=== PATIENT | female | born 1965 | race Caucasian/White ===

== ENCOUNTER → 2018-08-02 | Emergency (ER) | payer OTHER ==
[2018-08-02 00:39] VITALS: BP 141/85; PULSE 86; TEMP 97.5; BMI 26.6
== END | disposition left against medical advice (07) ==
LOC: JER 00:35
DX: Z53.21 Procedure and treatment not carried out due to patient leaving prior to being seen by health care provider (principal)
CPT/HCPCS: 99281-25

== ENCOUNTER 2018-11-22 15:29 | Emergency (ER) | payer OTHER ==
[2018-11-22 15:38] VITALS: BP 144/88; PULSE 87; TEMP 98.3; BMI 28.3
--- NOTE | 2018-11-22 15:38 | PDOC ---
Rapid Medical Evaluation Chief Complaint: Head/Neck problem Medical Evaluation: Allergies Allergy/AdvReac Type Severity Reaction Status Date / Time No Known Allergies Allergy Verified 08/02/18 00:39 11/22/18 15:34 Pt presents for b/l hand numbness for 4 days. States the numbness moves up her arms. Denies recent URI, trauma Exam: NAD, full ROM of hands b/l Orders: Labs Pt to proceed to ED for further evaluation Discharge Disposition - Diagnosis Bilateral hand numbness - Referrals - Patient Instructions - Post Discharge Activity
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
[2018-11-22] MEDS ORDERED: KETOROLAC TROMETHAMINE 15 MG/ML VIAL IVPUSH ONE (16:29)
[2018-11-22 16:34] LABS: BASO % 1.1 % (0-2.0); EOS % 2.9 % (0-4.5); HEMATOCRIT 39.8 % (32.4-45.2); HEMOGLOBIN 13.5 GM/dL (10.7-15.3); LYMPH % 34.6 % (8-40); MCH 27.7 pg (25.7-33.7); MCHC 33.8 g/dl (32.0-36.0); MEAN CELL VOLUME 81.7 fl (80-96); MEAN PLT VOLUME 9.7 fl (7.5-11.1); MONO % 8.6 % (3.8-10.2); NEUT % 52.8 % (42.8-82.8); PLATELET COUNT 234 K/MM3 (134-434); RBC 4.87 M/mm3 (3.60-5.2); WHITE BLOOD COUNT 6.6 K/mm3 (4.0-10.0)
[2018-11-22] MEDS ORDERED: KETOROLAC TROMETHAMINE 15 MG/ML VIAL ONE (16:40)
[2018-11-22 17:00] LABS: INR 0.98 (0.83-1.09); PROTHROMBIN TIME (PATIENT) 11.6 SEC (9.7-13.0)
[2018-11-22 17:12] LABS: ALBUMIN 3.8 g/dl (3.4-5.0); ALK PHOS 82 U/L (45-117); ANION GAP 9 MMOL/L (8-16); BILIRUBIN,TOTAL 0.3 mg/dL (0.2-1); BLOOD UREA NITROGEN 15 mg/dL (7-18); CALCIUM 9.2 mg/dL (8.5-10.1); CHLORIDE 106 mmol/L (98-107); CO2 26 mmol/L (21-32); CREATININE 0.7 mg/dL (0.55-1.3); GLUCOSE,RANDOM 91 mg/dL (74-106); POTASSIUM 4.1 mmol/L (3.5-5.1); SGOT/AST 26 U/L (15-37); SGPT/ALT 30 U/L (13-61); SODIUM 141 mmol/L (136-145); TOT PROT 7.2 g/dl (6.4-8.2)
[2018-11-22 17:17] LABS: URINE APPEARANCE SLCLOUDY; URINE BILIRUBIN NEGATIVE (<2.0 mg/dL); URINE COLOR YELLOW; URINE GLUCOSE (UA) NEGATIVE (NEGATIVE); URINE KETONE TRACE (NEGATIVE); URINE LEUK ESTERASE NEGATIVE (NEGATIVE); URINE NITRITE NEGATIVE (NEGATIVE); URINE PROTEIN NEGATIVE (NEGATIVE)
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
== END 2018-11-22 18:59 | disposition home or self-care (01) ==
LOC: JER 15:29
PROC: 3E0333Z Introduction of Anti-inflammatory into Peripheral Vein, Percutaneous Approach (ICD-10-PCS; principal; 2018-11-22)
DX: M79.642 Pain in left hand (principal); M79.641 Pain in right hand; M54.2 Cervicalgia; M25.512 Pain in left shoulder; G89.29 Other chronic pain
CPT/HCPCS: 36415; 80053; 81003; 85025; 85610; 96374; 99282-25

== ENCOUNTER 2019-04-10 15:19 | Emergency (ER) | payer OTHER ==
--- NOTE | 2019-04-10 15:36 | PDOC ---
Rapid Medical Evaluation Time Seen by Provider: 04/10/19 15:34 Medical Evaluation: Allergies Allergy/AdvReac Type Severity Reaction Status Date / Time No Known Allergies Allergy Verified 04/10/19 15:34 04/10/19 15:34 I have performed a brief in-person evaluation of this patient. The patient presents with a chief complaint of: atraumatic left knee pain x4 days Pertinent physical exam findings: Flexion >90 degrees. Left infrapatellar swelling I have ordered the following: xrays, ice The patient will proceed to the ED for further evaluation. Discharge Disposition - Diagnosis Left knee pain - Referrals - Patient Instructions - Post Discharge Activity
[2019-04-10 15:37] VITALS: BP 112/89; PULSE 74; TEMP 98.5; BMI 30.2
--- NOTE | 2019-04-10 16:29 | PDOC ---
History of Present Illness - General Chief Complaint: Pain Stated Complaint: LT LEG SWOLLEN/PAIN Time Seen by Provider: 04/10/19 15:34 History Source: Patient Exam Limitations: No Limitations - History of Present Illness Initial Comments: 04/10/19 17:27 onset of ankle pain 4 days agoand uncertain as to the mechanism of injury. States has recent move where was doing excessive lifting andwalking but does not remember any specific incident that caused himinjury to her right ankle Occurred: reports: just prior to arrival Severity: reports: mild, moderate Pain Location: reports: lower extremity (right ankle) Modifying Factors: improves with: cold therapy Associated Symptoms (Fall): denies symptoms Past History - Travel Traveled outside of the country in the last 30 days: No Close contact w/someone who was outside of country & ill: No - Past Medical History Allergies/Adverse Reactions: Allergies Allergy/AdvReac Type Severity Reaction Status Date / Time No Known Allergies Allergy Verified 04/10/19 15:34 Home Medications: Ambulatory Orders Naproxen [Naprosyn -] 500 mg PO BID #30 tablet 04/10/19 COPD: No CHF: No - Suicide/Smoking/Psychosocial Hx Smoking History: Never smoked Have you smoked in the past 12 months: No Hx Alcohol Use: No Drug/Substance Use Hx: No Review of Systems - Review of Systems Able to Perform ROS?: Yes Is the patient limited Mexican proficient: Yes Constitutional: Yes: See HPI. No: Symptoms Reported, Fever, Malaise HEENTM: No: Symptoms Reported Musculoskeletal: Yes: Symptoms Reported, See HPI, Joint Pain, Joint Swelling, Muscle Pain Integumentary: Yes: Symptoms Reported, See HPI Neurological: No: Symptoms reported All Other Systems: Reviewed and Negative *Physical Exam - Vital Signs Last Vital Signs Temp Pulse Resp BP Pulse Ox 98.5 F 74 18 112/89 100 04/10/19 15:34 04/10/19 15:34 04/10/19 15:34 04/10/19 15:34 04/10/19 15:34 - Physical Exam General Appearance: Yes: Nourished, Appropriately Dressed, Apparent Distress, Mild Distress HEENT: positive: RONALD, Normal ENT Inspection, TMs Normal, Pharynx Normal Neck: positive: Supple. negative: Tender Respiratory/Chest: positive: Lungs Clear Musculoskeletal: negative: Normal Inspection Extremity: positive: Normal Capillary Refill, Swelling, Other (patella is mobile but is tender with movement. No crepitus or step-offs. Has positive ballottement to the superior lateral aspect of knee capsule. Range of motion is approximately 50% secondary to pain and swelling. Has worse pain on the lateral aspect worse at the superior insertion of the LCL. Has some mild tenderness in posterior fossa. Neurovascular intact distal to knee). negative: Normal Range of Motion (limited due to pain and swelling) Integumentary: positive: Normal Color, Dry, Warm Neurologic: positive: sign painter II-XII NML intact, Fully Oriented, Alert, Normal Mood/ Affect, Normal Response, Motor Strength 5/5 Progress Note - Progress Note Progress Note: nee sprain,x-ray negative for fractures or dislocations, Donn wrap applied, will treat with RICE, NSAIDS- F/U with ORTHO *DC/Admit/Observation/Transfer Diagnosis at time of Disposition: Sprain of left knee Qualifiers: Encounter type: initial encounter Involved ligament of knee: unspecified ligament Qualified Code(s): S83.92XA - Sprain of unspecified site of left knee, initial encounter - Discharge Dispostion Disposition: HOME Condition at time of disposition: Stable Decision to Admit order: No - Prescriptions Prescriptions: Naproxen [Naprosyn -] 500 mg PO BID #30 tablet - Referrals Referrals: Waletr Coy MD [Staff Physician] - - Patient Instructions Printed Discharge Instructions: DI for Knee Sprain Additional Instructions: Rest, ice to area on and off for 15 minutes 4-6 times a day Avoid heavy lifting or exercise until pain and swelling is resolved or until further directed Keep area highly elevated to reduce swelling Use splints/Donn wrap as directed Followup with orthopedist in one to 2 days if not improving, if significantly improved may wait one week for followup with orthopedist May use ibuprofen every 6 hours as needed for pain - Post Discharge Activity Forms/Work/School Notes: Back to Work
== END 2019-04-10 16:41 | disposition home or self-care (01) ==
LOC: JERFT 15:19
DX: S83.8X2A Sprain of other specified parts of left knee, initial encounter (principal); X50.9XXA Other and unspecified overexertion or strenuous movements or postures, initial encounter; Y93.89 Activity, other specified; Y92.89 Other specified places as the place of occurrence of the external cause; Y99.8 Other external cause status
CPT/HCPCS: 73560-TC-LT-FY; 99282-25

== ENCOUNTER 2021-05-15 09:57 | Emergency (ER) | payer OTHER ==
[2021-05-15 10:03] VITALS: TEMP 97.8; BMI 28.5
[2021-05-15] MEDS ORDERED: METOCLOPRAMIDE HCL INJECTION 10 MG/2 ML VIAL IVPB ONE (10:24)
[2021-05-15] MEDS ORDERED: ACETAMINOPHEN 1000 MG/100 ML VIAL IVPB ONE (10:24)
[2021-05-15] MEDS ORDERED: SODIUM CHLORIDE 0.9% 500 ML INFUS.BAG IV ONE (10:25)
[2021-05-15] MEDS ORDERED: ACETAMINOPHEN INJECTION 100 ML IVPB ONE (10:26)
[2021-05-15] MEDS ORDERED: METOCLOPRAMIDE HCL INJECTION 10 MG/2 ML VIAL ONE (10:49)
[2021-05-15 13:32] VITALS: BP 176/98; PULSE 67
[2021-05-16 13:10] LABS: SARS-CoV-2 NAA Not Detected (Not Detected)
== END 2021-05-15 13:26 | disposition home or self-care (01) ==
LOC: JER 09:57
PROC: 3E033NZ Introduction of Analgesics, Hypnotics, Sedatives into Peripheral Vein, Percutaneous Approach (ICD-10-PCS; principal; 2021-05-15)
PROC: 3E033GC Introduction of Other Therapeutic Substance into Peripheral Vein, Percutaneous Approach (ICD-10-PCS; 2021-05-15)
PROC: 3E033GC Introduction of Other Therapeutic Substance into Peripheral Vein, Percutaneous Approach (ICD-10-PCS; 2021-05-15)
DX: R51.9 Headache, unspecified (principal); R53.1 Weakness
CPT/HCPCS: 87804; 96374; 96375; 99285-25; C9803; J0131; U0003; U0005

== ENCOUNTER 2021-06-26 02:09 | Emergency (ER) | payer OTHER ==
[2021-06-26] MEDS ORDERED: diphenhydrAMINE HCL 25 MG CAPSULE (FP) PO ONE (02:39)
[2021-06-26] MEDS ORDERED: ACETAMINOPHEN 325 MG TABLET (FP) ONE (02:39)
[2021-06-26 02:40] VITALS: BP 142/85; PULSE 66; TEMP 98.2; BMI 26.6
[2021-06-26] MEDS ORDERED: METOCLOPRAMIDE HCL 10 MG TABLET (FP) PO ONE (02:40)
[2021-06-26] MEDS: METOCLOPRAMIDE HCL 10 MG TABLET (FP) PO ONE ×2 (02:43→03:03)
[2021-06-26] MEDS: diphenhydrAMINE HCL 25 MG CAPSULE (FP) PO ONE ×2 (02:43→03:03)
[2021-06-26] MEDS: ACETAMINOPHEN 325 MG TABLET (FP) PO ONE ×2 (02:43→03:02)
[2021-06-26] MEDS ORDERED: METOCLOPRAMIDE HCL INJECTION 10 MG/2 ML VIAL IVPUSH ONE (03:01)
[2021-06-26] MEDS ORDERED: DEXAMETHASONE SOD PHOSPHATE 10 MG/1 ML VIAL IVPUSH ONE (03:01)
[2021-06-26] MEDS ORDERED: ACETAMINOPHEN 1000 MG/100 ML VIAL (NON FORMULARY) IVPB ONE (03:01)
[2021-06-26] MEDS ORDERED: METOCLOPRAMIDE HCL INJECTION 10 MG/2 ML VIAL ONE (03:05)
[2021-06-26] MEDS ORDERED: ACETAMINOPHEN INJECTION 100 ML IVPB ONE (03:05)
[2021-06-26] MEDS ORDERED: DEXAMETHASONE SOD PHOSPHATE 10 MG/1 ML VIAL ONE (03:05)
== END 2021-06-26 05:49 | disposition home or self-care (01) ==
LOC: JER 02:09
PROC: 3E033GC Introduction of Other Therapeutic Substance into Peripheral Vein, Percutaneous Approach (ICD-10-PCS; principal; 2021-06-26)
DX: R51.9 Headache, unspecified (principal)
CPT/HCPCS: 70450-TC; 70486-TC; 99284-25; J0131; J1100

== ENCOUNTER 2022-03-20 06:38 | Emergency (ER) | payer OTHER ==
[2022-03-20 06:53] VITALS: TEMP 98; BMI 29.6
[2022-03-20] MEDS ORDERED: METOCLOPRAMIDE HCL INJECTION 10 MG/2 ML VIAL IVPB ONE (07:36)
[2022-03-20] MEDS ORDERED: diazePAM 2 MG TABLET PO ONE (07:36)
[2022-03-20] MEDS ORDERED: ONDANSETRON 4 MG/2 ML VIAL IVPB PRN (07:36)
[2022-03-20] MEDS ORDERED: METOCLOPRAMIDE HCL INJECTION 10 MG/2 ML VIAL ONE (07:41)
[2022-03-20 08:23] LABS: BASO % 0.4 % (0-2.0); EOS % 1.8 % (0-4.5); HEMATOCRIT 40.4 % (32.4-45.2); HEMOGLOBIN 13.5 GM/dL (10.7-15.3); LYMPH % 20.2 % (8-40); MCH 27.3 pg (25.7-33.7); MCHC 33.5 g/dl (32.0-36.0); MEAN CELL VOLUME 81.5 fl (80-96); MEAN PLT VOLUME 9.2 fl (7.5-11.1); MONO % 6.5 % (3.8-10.2); NEUT % 71.1 % (42.8-82.8); PLATELET COUNT 201 10^3/uL (134-434); RBC 4.96 M/mm3 (3.60-5.2); WHITE BLOOD COUNT 7.5 K/mm3 (4.0-10.0)
[2022-03-20] MEDS ORDERED: diazePAM 2 MG TABLET ONE (08:27)
[2022-03-20] MEDS ORDERED: HYDROCHLOROTHIAZIDE 12.5 MG CAPSULE (FP) PO ONE (08:55)
[2022-03-20 09:15] LABS: BILIRUBIN,TOTAL 0.5 mg/dL (0.2-1); BLOOD UREA NITROGEN 20.6 mg/dL (7-18); CALCIUM 9.1 mg/dL (8.5-10.1); CREATININE 0.9 mg/dL (0.55-1.3); MAGNESIUM 2.3 mg/dL (1.8-2.4); TOT PROT 7.2 g/dl (6.4-8.2)
[2022-03-20] MEDS ORDERED: HYDROCHLOROTHIAZIDE 25 MG TABLET (FP) ONE (09:19)
[2022-03-20 10:22] VITALS: BP 157/85; PULSE 63
== END 2022-03-20 10:24 | disposition home or self-care (01) ==
LOC: JER 06:38
PROC: 3E033GC Introduction of Other Therapeutic Substance into Peripheral Vein, Percutaneous Approach (ICD-10-PCS; principal; 2022-03-20)
DX: R42 Dizziness and giddiness (principal); I10 Essential (primary) hypertension
CPT/HCPCS: 36415; 80053; 83735; 84703; 85025; 93005; 93010; 99284-25

== ENCOUNTER 2022-08-15 07:19 | Emergency (ER) | payer OTHER ==
[2022-08-15 08:06] VITALS: BP 166/89; PULSE 72; RESP 18; TEMP 98.2; BMI 27.8
[2022-08-15] MEDS ORDERED: ONDANSETRON *ODT* 4 MG TABLET SL ONE (08:20)
[2022-08-15] MEDS ORDERED: KETOROLAC TROMETHAMINE 30 MG/1 ML VIAL IM ONE (08:20)
[2022-08-15] MEDS ORDERED: KETOROLAC TROMETHAMINE 30 MG/1 ML VIAL ONE (09:18)
[2022-08-15] MEDS ORDERED: ONDANSETRON *ODT* 4 MG TABLET ONE (09:18)
== END 2022-08-15 10:42 | disposition home or self-care (01) ==
LOC: JER 07:19
PROC: 3E0233Z Introduction of Anti-inflammatory into Muscle, Percutaneous Approach (ICD-10-PCS; principal; 2022-08-15)
DX: R05.1 Acute cough (principal); M79.10 Myalgia, unspecified site; R51.9 Headache, unspecified; R11.0 Nausea; R53.83 Other fatigue
CPT/HCPCS: 0241U-QW; 71046-TC-FY; 96372; 99284-25; Q0162

== ENCOUNTER 2022-09-19 07:14 | Emergency (ER) | payer OTHER ==
[2022-09-19 07:29] VITALS: RESP 18; BMI 25.9
[2022-09-19] MEDS ORDERED: SODIUM CHLORIDE 0.9% 500 ML INFUS.BAG IV ONE (08:20)
[2022-09-19] MEDS ORDERED: MAG HYDROX/AL HYDROX/SIMETH 30 ML UNIT-DOSE CUP PO ONE (08:20)
[2022-09-19] MEDS ORDERED: ACETAMINOPHEN 1000 MG/100 ML BAG IVPB ONE (08:20)
[2022-09-19] MEDS ORDERED: FAMOTIDINE 20 MG/50 ML IVPB 20 MG/50 ML MG IVPB ONE (08:20)
[2022-09-19] MEDS ORDERED: ACETAMINOPHEN INJECTION 100 ML IVPB ONE (08:40)
[2022-09-19] MEDS ORDERED: MAG HYDROX/AL HYDROX/SIMETH 30 ML UNIT-DOSE CUP ONE (08:40)
[2022-09-19] MEDS ORDERED: FAMOTIDINE 10 MG/ML VIAL IVPB ONE (08:40)
[2022-09-19 09:03] LABS: EPI CELLS 9 /uL (0-25.1); HYALINE CASTS 2 /uL (0-3.1); PH,URINE 6.5 (5.0-8.0); URINE APPEARANCE CLEAR; URINE BACTERIA 57 /uL (0-1359); URINE BILIRUBIN NEGATIVE (NEGATIVE); URINE COLOR YELLOW; URINE GLUCOSE (UA) NEGATIVE (NEGATIVE); URINE KETONE TRACE (NEGATIVE); URINE LEUK ESTERASE NEGATIVE (NEGATIVE); URINE NITRITE NEGATIVE (NEGATIVE); URINE PROTEIN TRACE (NEGATIVE); URINE RBC 270 /uL (0-23.9); URINE WBC 10 /uL (0-25.8)
[2022-09-19 09:12] LABS: BASO % 4.1 % (0-2.0); EOS % 1.6 % (0-4.5); HEMATOCRIT 33.4 % (32.4-45.2); HEMOGLOBIN 10.6 GM/dL (10.7-15.3); LYMPH % 15.2 % (8-40); MCH 23.6 pg (25.7-33.7); MCHC 31.8 g/dl (32.0-36.0); MEAN CELL VOLUME 74.3 fl (80-96); MEAN PLT VOLUME 8.5 fl (7.5-11.1); MONO % 8.7 % (3.8-10.2); NEUT % 70.4 % (42.8-82.8); PLATELET COUNT 381 10^3/uL (134-434); RDW 14.3 % (11.6-15.6); WHITE BLOOD COUNT 8.6 K/mm3 (4.0-10.0)
[2022-09-19 09:29] LABS: CHLORIDE 103 mmol/L (98-107); SODIUM 140 mmol/L (136-145)
[2022-09-19 09:31] LABS: ANION GAP 9 MMOL/L (8-16); BLOOD UREA NITROGEN 12.5 mg/dL (7-18); CALCIUM 10.1 mg/dL (8.5-10.1); CO2 27 mmol/L (21-32); GLUCOSE,RANDOM 104 mg/dL (74-106); LIPASE 217 U/L (73-393); MAGNESIUM 2.4 mg/dL (1.8-2.4)
[2022-09-19 09:34] LABS: CREATININE 0.8 mg/dL (0.55-1.3); SGOT/AST 29 U/L (15-37); SGPT/ALT 33 U/L (13-61)
[2022-09-19 09:36] LABS: BILIRUBIN,TOTAL 0.4 mg/dL (0.2-1); TOT PROT 7.8 g/dl (6.4-8.2)
[2022-09-19 09:37] LABS: ALK PHOS 80 U/L (45-117)
[2022-09-19 13:20] VITALS: BP 100/68; PULSE 73; TEMP 98.5
== END 2022-09-19 13:44 | disposition home or self-care (01) ==
LOC: JER 07:14
PROC: 3E033GC Introduction of Other Therapeutic Substance into Peripheral Vein, Percutaneous Approach (ICD-10-PCS; principal; 2022-09-19)
DX: K80.20 Calculus of gallbladder without cholecystitis without obstruction (principal)
CPT/HCPCS: 0241U-QW; 36415; 74177-TC; 76705-TC; 80053; 81003; 82272; 83690; 83735; 84702; 85025; 93005; 93010; 99285-25; Q9967

== ENCOUNTER 2022-09-23 15:01 | Day surgery (SDC) | payer OTHER ==
[2022-09-23 15:33] VITALS: BMI 25.7
[2022-09-23 18:31] LABS: BASO % 0.3 % (0-2.0); EOS % 0.9 % (0-4.5); HEMOGLOBIN 10.1 GM/dL (10.7-15.3); LYMPH % 17.8 % (8-40); MCH 23.5 pg (25.7-33.7); MCHC 31.5 g/dl (32.0-36.0); MEAN CELL VOLUME 74.4 fl (80-96); MEAN PLT VOLUME 8.3 fl (7.5-11.1); MONO % 8.6 % (3.8-10.2); NEUT % 72.4 % (42.8-82.8); PLATELET COUNT 341 10^3/uL (134-434); RBC 4.31 M/mm3 (3.60-5.2); RDW 14.4 % (11.6-15.6); WHITE BLOOD COUNT 7.2 K/mm3 (4.0-10.0)
[2022-09-23 18:38] LABS: INR 1.23 (0.83-1.09); PROTHROMBIN TIME (PATIENT) 14.2 SEC (9.7-13.0)
[2022-09-23 18:41] LABS: ACTIVATED PTT 29.4 SECONDS (25.2-36.5)
[2022-09-23 18:52] LABS: ALBUMIN 3.2 g/dl (3.4-5.0); BLOOD UREA NITROGEN 17.2 mg/dL (7-18); CALCIUM 9.7 mg/dL (8.5-10.1)
[2022-09-23 18:55] LABS: CREATININE 1.1 mg/dL (0.55-1.3)
[2022-09-23 18:57] LABS: BILIRUBIN,TOTAL 0.3 mg/dL (0.2-1); TOT PROT 7.5 g/dl (6.4-8.2)
[2022-09-24] MEDS ORDERED: ONDANSETRON 4 MG/2 ML VIAL IVPUSH PRN ×2 (08:54→12:54)
[2022-09-24] MEDS ORDERED: LACTATED RINGERS SOLUTION 1,000 ML IV SCH (09:00)
[2022-09-24] MEDS ORDERED: ROCURONIUM BROMIDE 50 MG/5 ML SYRINGE ONE (09:06)
[2022-09-24] MEDS ORDERED: DEXAMETHASONE SOD PHOSPHATE 4 MG/1 ML VIAL ONE (09:06)
[2022-09-24] MEDS ORDERED: PROPOFOL 20 ML ONE (09:06)
[2022-09-24] MEDS ORDERED: MIDAZOLAM HCL 2 MG/2 ML SINGLE DOSE VIAL ONE (09:06)
[2022-09-24] MEDS ORDERED: LIDOCAINE HCL/PF 2% SDV 5ML VIAL ONE (09:06)
[2022-09-24] MEDS ORDERED: FENTANYL CITRATE/PF 50 MCG/ML VIAL ONE ×5 (09:06→11:47)
[2022-09-24] MEDS ORDERED: ONDANSETRON 4 MG/2 ML VIAL ONE (09:06)
[2022-09-24 09:51] LABS: BASO % 0.5 % (0-2.0); EOS % 1.5 % (0-4.5); HEMATOCRIT 32.6 % (32.4-45.2); HEMOGLOBIN 10.5 GM/dL (10.7-15.3); LYMPH % 24.9 % (8-40); MCH 23.9 pg (25.7-33.7); MCHC 32.3 g/dl (32.0-36.0); MEAN PLT VOLUME 8.5 fl (7.5-11.1); MONO % 8.6 % (3.8-10.2); NEUT % 64.5 % (42.8-82.8); PLATELET COUNT 348 10^3/uL (134-434); RDW 14.7 % (11.6-15.6)
[2022-09-24 09:58] LABS: INR 1.26 (0.83-1.09); PROTHROMBIN TIME (PATIENT) 14.5 SEC (9.7-13.0)
[2022-09-24 10:00] LABS: ACTIVATED PTT 30.8 SECONDS (25.2-36.5)
[2022-09-24] MEDS ORDERED: ceFAZolin SODIUM 1 GM VIAL ONE (10:00)
[2022-09-24] MEDS ORDERED: ceFAZolin SODIUM 1 GM VIAL IVPB ONE (10:01)
[2022-09-24] MEDS ORDERED: KETOROLAC TROMETHAMINE 30 MG/1 ML VIAL ONE (10:58)
[2022-09-24] MEDS ORDERED: GLYCOPYRROLATE 0.2 MG/1 ML VIAL ONE (10:58)
[2022-09-24] MEDS ORDERED: NEOSTIGMINE METHYLSULFATE 0.5 MG/ML - 10 ML MDV ONE (10:58)
[2022-09-24] MEDS ORDERED: BUPIVACAINE HCL/PF 0.5% (5MG/ML) 10 ML VIAL IJ ONE (11:05)
[2022-09-24 11:07] LABS: CALCIUM 10.1 mg/dL (8.5-10.1)
[2022-09-24 11:08] LABS: ALBUMIN 3.2 g/dl (3.4-5.0); MAGNESIUM 2.7 mg/dL (1.8-2.4)
[2022-09-24 11:10] LABS: CREATININE 1.1 mg/dL (0.55-1.3); PHOSPHOROUS 3.3 mg/dL (2.5-4.9)
[2022-09-24 11:11] LABS: BILIRUBIN,TOTAL 0.4 mg/dL (0.2-1); TOT PROT 7.5 g/dl (6.4-8.2)
[2022-09-24] MEDS ORDERED: HYDROmorphone HCl 2 MG/ML VIAL ONE (11:52)
[2022-09-24] MEDS ORDERED: HYDROmorphone HCL CARPU-JECT 2 MG/1 ML DISP.SYRIN IVPUSH ONE ×2 (11:55→12:17)
[2022-09-24] MEDS ORDERED: HYDROmorphone HCl 2 MG/ML VIAL IVPUSH PRN (12:05)
[2022-09-24] MEDS ORDERED: ACETAMINOPHEN 1000 MG/100 ML BAG IVPB ONE ×2 (12:06→12:08)
[2022-09-24] MEDS ORDERED: oxyCODONE HCL 5 MG TABLET PO PRN (12:54)
[2022-09-24] MEDS: LACTATED RINGERS SOLUTION 1,000 ML IV SCH ×2 (15:04→22:05)
[2022-09-24] MEDS ORDERED: ACETAMINOPHEN 1000 MG/100 ML BAG IVPB PRN (17:00)
[2022-09-24 18:38] VITALS: RESP 18
[2022-09-24] MEDS: KETOROLAC TROMETHAMINE 15 MG/ML VIAL IVPUSH PRN (20:37)
[2022-09-24] MEDS: DOCUSATE SODIUM 100 MG CAPSULE (FP) PO SCH (21:59)
[2022-09-24] MEDS ORDERED: ATORVASTATIN CA 10 MG TABLET (FP) PO SCH (22:00)
[2022-09-25 08:23] LABS: BASO % 0.6 % (0-2.0); EOS % 0.2 % (0-4.5); HEMATOCRIT 27.3 % (32.4-45.2); HEMOGLOBIN 8.9 GM/dL (10.7-15.3); LYMPH % 12.7 % (8-40); MCH 23.6 pg (25.7-33.7); MCHC 32.5 g/dl (32.0-36.0); MEAN CELL VOLUME 72.7 fl (80-96); MEAN PLT VOLUME 8.6 fl (7.5-11.1); MONO % 6.3 % (3.8-10.2); NEUT % 80.2 % (42.8-82.8); PLATELET COUNT 292 10^3/uL (134-434); RBC 3.75 M/mm3 (3.60-5.2); RDW 14.2 % (11.6-15.6); WHITE BLOOD COUNT 10.1 K/mm3 (4.0-10.0)
[2022-09-25 08:53] LABS: ALBUMIN 2.6 g/dl (3.4-5.0); BLOOD UREA NITROGEN 15.2 mg/dL (7-18); CALCIUM 9.3 mg/dL (8.5-10.1)
[2022-09-25 08:57] LABS: BILIRUBIN,TOTAL 0.8 mg/dL (0.2-1); CREATININE 0.9 mg/dL (0.55-1.3); TOT PROT 6.5 g/dl (6.4-8.2)
[2022-09-25] MEDS ORDERED: ENOXAPARIN NA (PORCINE) 40 MG/0.4 ML DISP.SYRIN SQ SCH (10:00)
[2022-09-25] MEDS ORDERED: HYDROCHLOROTHIAZIDE 12.5 MG CAPSULE (FP) PO SCH (10:00)
[2022-09-25] MEDS ORDERED: MECLIZINE HCL 25 MG TABLET (FP) PO SCH (10:00)
[2022-09-25] MEDS ORDERED: MECLIZINE HCL 25 MG TABLET (FP) PO PRN (10:00)
[2022-09-25] MEDS: DOCUSATE SODIUM 100 MG CAPSULE (FP) PO SCH (10:09)
[2022-09-25] MEDS: KETOROLAC TROMETHAMINE 15 MG/ML VIAL IVPUSH PRN (13:35)
[2022-09-25 14:47] VITALS: BP 139/77; PULSE 71; TEMP 98.4
== END 2022-09-25 16:55 | disposition home or self-care (01) ==
LOC: JOR 15:01 → UNDOADMOB 17:24 → JERBED 17:24 → J4W 21:40 → JASUSAT 23:46 → SUATTDRO 23:46 → J7W 23:46 → JASUSAT 09-24 13:55 → J7W 09-24 13:57 → JASUSAT 09-24 13:57
PROVIDERS: ATTEND Internal Medicine
PROC: 0FT44ZZ Resection of Gallbladder, Percutaneous Endoscopic Approach (ICD-10-PCS; principal; 2022-09-23)
DX: K80.10 Calculus of gallbladder with chronic cholecystitis without obstruction (principal)
CPT/HCPCS: 36415; 80053; 83735; 84100; 85025; 85610; 85730; 86850; 86900; 86901; 88304-TC; 93005; 93010; 94010; 94760; 99285-25; C9803-CS; U0003; U0005

== ENCOUNTER 2023-01-04 13:25 | Emergency (ER) | payer OTHER ==
[2023-01-04 13:39] VITALS: BMI 26.3
[2023-01-04 16:11] LABS: BASO % 0.6 % (0-2.0); EOS % 1.5 % (0-4.5); HEMATOCRIT 32.7 % (32.4-45.2); HEMOGLOBIN 10.5 GM/dL (10.7-15.3); LYMPH % 16.1 % (8-40); MCH 22.7 pg (25.7-33.7); MCHC 32.1 g/dl (32.0-36.0); MEAN CELL VOLUME 70.9 fl (80-96); MONO % 5.3 % (3.8-10.2); NEUT % 76.5 % (42.8-82.8); PLATELET COUNT 419 10^3/uL (134-434); RBC 4.61 M/mm3 (3.60-5.2); RDW 15.9 % (11.6-15.6); WHITE BLOOD COUNT 9.9 K/mm3 (4.0-10.0)
[2023-01-04 16:17] LABS: INR 1.26 (0.83-1.09); PROTHROMBIN TIME (PATIENT) 14.6 SEC (9.7-13.0)
[2023-01-04 16:29] LABS: ALBUMIN 3.2 g/dl (3.4-5.0); CALCIUM 10.3 mg/dL (8.5-10.1)
[2023-01-04 16:30] LABS: BLOOD UREA NITROGEN 14.1 mg/dL (7-18)
[2023-01-04 16:32] LABS: CREATININE 0.8 mg/dL (0.55-1.3)
[2023-01-04 16:34] LABS: BILIRUBIN,TOTAL 0.2 mg/dL (0.2-1); TOT PROT 8.3 g/dl (6.4-8.2)
[2023-01-04] MEDS ORDERED: ACETAMINOPHEN 1000 MG/100 ML BAG IVPB ONE (17:03)
[2023-01-04] MEDS ORDERED: ACETAMINOPHEN INJECTION 100 ML IVPB ONE (17:03)
[2023-01-04 19:22] VITALS: BP 133/78; PULSE 80; RESP 19; TEMP 98.6
== END 2023-01-04 19:47 | disposition home or self-care (01) ==
LOC: JER 13:25
PROC: 3E033NZ Introduction of Analgesics, Hypnotics, Sedatives into Peripheral Vein, Percutaneous Approach (ICD-10-PCS; principal; 2023-01-04)
DX: R07.89 Other chest pain (principal); Z20.822 Contact with and (suspected) exposure to COVID-19
CPT/HCPCS: 0241U-QW; 36415; 71046-TC-FY; 71275-TC; 80053; 84484; 85025; 85379; 85610; 93005; 93010; 99285-25; Q9967

== ENCOUNTER 2023-06-10 02:50 | Emergency (ER) | payer OTHER ==
[2023-06-10 03:04] VITALS: BMI 26.2
[2023-06-10] MEDS ORDERED: SODIUM CHLORIDE 0.9% 500 ML INFUS.BAG IV ONE (04:03)
[2023-06-10] MEDS ORDERED: ACETAMINOPHEN 1000 MG/100 ML BAG IVPB ONE (04:03)
[2023-06-10] MEDS ORDERED: METOCLOPRAMIDE HCL INJECTION 10 MG/2 ML VIAL IVPUSH ONE (04:03)
[2023-06-10] MEDS ORDERED: METOCLOPRAMIDE HCL INJECTION 10 MG/2 ML VIAL ONE (04:08)
[2023-06-10] MEDS ORDERED: ACETAMINOPHEN INJECTION 100 ML IVPB ONE (04:08)
[2023-06-10 05:17] LABS: BASO % 0.7 % (0-2.0); EOS % 3.4 % (0-4.5); HEMATOCRIT 37.8 % (32.4-45.2); MCH 23.5 pg (25.7-33.7); MCHC 31.7 g/dl (32.0-36.0); MEAN PLT VOLUME 8.8 fl (7.5-11.1); MONO % 6.4 % (3.8-10.2); NEUT % 60.5 % (42.8-82.8); PLATELET COUNT 284 10^3/uL (134-434); RDW 15.9 % (11.6-15.6); WHITE BLOOD COUNT 7.3 K/mm3 (4.0-10.0)
[2023-06-10 05:23] LABS: CALCIUM 9.8 mg/dL (8.5-10.1)
[2023-06-10 05:24] LABS: ALBUMIN 3.8 g/dl (3.4-5.0); BLOOD UREA NITROGEN 14.5 mg/dL (7-18)
[2023-06-10 05:27] LABS: CREATININE 0.9 mg/dL (0.55-1.3)
[2023-06-10 05:28] LABS: BILIRUBIN,TOTAL 0.2 mg/dL (0.2-1); TOT PROT 7.6 g/dl (6.4-8.2)
[2023-06-10 06:28] VITALS: BP 161/87; PULSE 64; RESP 18; TEMP 97.7
== END 2023-06-10 07:26 | disposition home or self-care (01) ==
LOC: JER 02:50
PROC: 3E033NZ Introduction of Analgesics, Hypnotics, Sedatives into Peripheral Vein, Percutaneous Approach (ICD-10-PCS; principal; 2023-06-10)
PROC: 3E033GC Introduction of Other Therapeutic Substance into Peripheral Vein, Percutaneous Approach (ICD-10-PCS; 2023-06-10)
DX: G43.909 Migraine, unspecified, not intractable, without status migrainosus (principal); R11.0 Nausea; R42 Dizziness and giddiness; H53.8 Other visual disturbances; R53.1 Weakness
CPT/HCPCS: 36415; 70450-TC; 80053; 84484; 85025; 93005; 93010; 99285-25